=== PATIENT | female | born 1950 | race Hispanic/Latino ===

== ENCOUNTER → 2018-08-12 | Outpatient (CLI) | payer MEDICARE ==
[~2018-08-12] VITALS: Ht 160 cm; Wt 86.1 kg
[~2018-08-12] MED LIST: AMLO5TAB9 PO; HYDR25TA PO; MIRT15TA6 PO; NAPR-1023 PO; OXYB10TA PO; PRAV40TA3 PO; SERT100T12 PO; SODIUM CHLORIDE 0.9% 500ML 500 ML IV SCH
[2018-08-12 08:55] VITALS: BP 186/68
[2018-08-12 09:02] LABS: BASOPHILS % (AUTO) 1.2 % (0.0-5.0); EOSINOPHILS % (AUTO) 2.9 % (0.0-8.0); HEMATOCRIT 39.6 % (36-48); LYMPHOCYTES % (AUTO) 32.8 % (21.0-51.0); MEAN CORPUSCULAR HEMOGLOBIN 27.6 pg (27.0-33.0); MONOCYTES % (AUTO) 8.8 % (3.0-13.0); NEUTROPHILS % (AUTO) 54.3 % (40.0-77.0); NUCLEATED RED BLOOD CELLS 0.1 % (0.0-0.19); PLATELET COUNT (AUTO) 187 K/uL (130-400); RED BLOOD CELL COUNT(AUTO) 4.89 MIL/uL (4.00-5.50); RED CELL DISTRIBUTION WIDTH 14.2 % (11.0-15.5); WHITE BLOOD COUNT (AUTO) 8.3 K/uL (4.8-10.8)
[2018-08-12 09:04] LABS: APPEARANCE,URINE Clear (CLEAR); BILIRUBIN,URINE Negative (NEGATIVE); COLOR,URINE Yellow (YELLOW); GLUCOSE, URINE (UA) Negative (NEGATIVE); KETONES,URINE Negative (NEGATIVE); LEUKOCYTE ESTERASE ,URINE Moderate (NEGATIVE); NITRATE,URINE Negative (NEGATIVE); OCCULT BLOOD,URINE Small (NEGATIVE); PH,URINE 5.5 (5.0-8.0); PROTEIN,URINE Negative (NEGATIVE); UROBILINOGEN,URINE 0.2 mg/dL (0.2-1.0)
[2018-08-12 09:13] LABS: CREATININE 0.7 mg/dL (0.5-1.5); POTASSIUM 3.2 mmol/L (3.5-5.1)
[2018-08-12 09:17] LABS: INR 0.95 (0.85-1.15); PARTIAL THROMBOPLASTIN TIME 25.4 SEC (26.3-35.5)
[2018-08-12 09:24] LABS: BACTERIA,URINE Rare /HPF (None Seen); RBC,URINE 0-1 /HPF (0-1); SQUAMOUS EPITHELIAL CELL,UR 0-2 /HPF (0-2)
--- NOTE | 2018-08-13 11:49 | NUR ---
ABNORMAL LABS REPORTED ABNORMAL LABS TO TOÑO RODRIGUEZ. POTASSIUM 3.2, PTT 25.4, URINE. ORDERS TO REDRAW POTASSIUM LEVEL IN MORNING. JAMA WILL BE CALLING IN AN ANTIBIOTIC TO THE PHARMACY FOR URINE. OFFICE WILL NOTIFY PATIENT OF RX.
== END ==
LOC: EDSTATUS 08:00 → DAH 10:00
PROVIDERS: ATTEND Internal Medicine Cardiovascular Disease
DX: Z01.818 Encounter for other preprocedural examination (principal); I25.10 Atherosclerotic heart disease of native coronary artery without angina pectoris; R94.39 Abnormal result of other cardiovascular function study
CPT/HCPCS: 36415; 71045; 80048; 81001; 85025; 85610; 85730; 93005

== ENCOUNTER 2018-09-25 07:13 | Day surgery (SDC) | payer MEDICARE ==
[2018-09-23 10:43] LABS: BILIRUBIN,URINE Negative (NEGATIVE); COLOR,URINE Yellow (YELLOW); GLUCOSE, URINE (UA) Negative (NEGATIVE); KETONES,URINE Negative (NEGATIVE); LEUKOCYTE ESTERASE ,URINE Negative (NEGATIVE); NITRATE,URINE Negative (NEGATIVE); OCCULT BLOOD,URINE Small (NEGATIVE); PH,URINE 5.5 (5.0-8.0); PROTEIN,URINE Negative (NEGATIVE)
[2018-09-23 10:44] LABS: APPEARANCE,URINE CLEAR (CLEAR)
[2018-09-23 10:46] LABS: BASOPHILS % (AUTO) 0.8 % (0.0-5.0); EOSINOPHILS % (AUTO) 2.2 % (0.0-8.0); HEMATOCRIT 37.7 % (36-48); MEAN CORPUSCULAR HEMOGLOBIN 27.4 pg (27.0-33.0); MEAN CORPUSCULAR HGB CONC 33.9 g/dL (32.0-36.0); MEAN CORPUSCULAR VOLUME 80.9 fL (79-99); MONOCYTES % (AUTO) 8.4 % (3.0-13.0); NEUTROPHILS % (AUTO) 50.6 % (40.0-77.0); NUCLEATED RED BLOOD CELLS 0.1 % (0.0-0.19); PLATELET COUNT (AUTO) 199 K/uL (130-400); RED BLOOD CELL COUNT(AUTO) 4.65 MIL/uL (4.00-5.50); RED CELL DISTRIBUTION WIDTH 14.5 % (11.0-15.5); WHITE BLOOD COUNT (AUTO) 6.1 K/uL (4.8-10.8)
[2018-09-23 10:54] VITALS: BP 191/87
[2018-09-23 10:59] LABS: INR 0.92 (0.85-1.15); PARTIAL THROMBOPLASTIN TIME 25.6 SEC (26.3-35.5); PROTHROMBIN TIME 9.7 SEC (9.6-11.6)
[2018-09-23 11:03] LABS: CREATININE 0.6 mg/dL (0.5-1.5)
--- NOTE | 2018-09-23 11:06 | NUR ---
PAGED JAMA LUNDBERG OF DR. PADILLA TO NOTIFY OF K 3, PENDING CALL BACK.
[2018-09-23 11:14] LABS: BACTERIA,URINE Rare /HPF (None Seen); RBC,URINE 0-1 /HPF (0-1); WBC,URINE None Seen /HPF (0-1)
--- NOTE | 2018-09-23 11:40 | NUR ---
PER JAMA LUNDBERG OF DR. PADILLA ORDERS TO REDRAW K IN AM OF PROCEDURE AND JAMA LUNDBERG WILL NASIR MEDICATION TO PHARMACY OF CHOICE OF PATIENT. PATIENT INFORMED AND VERBALIZED UNDERSTANDING AND AGREED TO GO GET MEDICATION.
[2018-09-25] VITALS (23 sets, daily range): BP systolic 96–163; BP diastolic 38–73
[~2018-09-25] VITALS: Ht 160 cm; Wt 85.9 kg
[~2018-09-25 07:13] MED LIST changes: +CARV6.25 PO; -SODIUM CHLORIDE 0.9% 500ML 500 ML IV SCH
[2018-09-25] MEDS ORDERED: SODIUM CHLORIDE 0.9% 1000ML 1,000 ML IV SCH (08:00)
--- NOTE | 2018-09-25 08:19 | NUR ---
LABS INFORMED TOÑO MÁRQUEZ OF ABNORMAL POTASSIUM AND PTS HEART RATE OF 37, ASYMPTOMATIC, PT STATES SHE HAS HAD COUGH FOR 2 DAYS, AFEBRILE. ORDERS RECEIVED TO INFORM DR. PADILLA OF COUGH AND HR.
--- NOTE | 2018-09-25 08:25 | NUR ---
DR. PADILLA NOTIFIED OF PT'S COUGH X 2 DAYS AND OF PT'S AVERAGE HR OF 40 WITH LOW OF 37[address] PADILLA WILL PROCEED WITH PROCEDURE. NO FURTHER ORDERS GIVEN.
[2018-09-25] MEDS ORDERED: HEPARIN SODIUM 1000UNIT/ML 10ML VIAL ONE (10:05)
[2018-09-25] MEDS ORDERED: IOHEXOL-350 50ML VIAL IV ONE (10:06)
[2018-09-25] MEDS ORDERED: LIDOCAINE HCL 2% 20ML ONE (10:06)
[2018-09-25] MEDS ORDERED: IOHEXOL 350 MG/ML 100ML INFUS..BTL IV ONE (10:06)
[2018-09-25] MEDS ORDERED: ATROPINE SULFATE 0.1 MG/ML 10 ML SYG IVP ONE ×2 (10:29→11:42)
[2018-09-25] MEDS ORDERED: HYDRALAZINE HCL 20 MG/ML VIAL ONE (10:48)
[2018-09-25] MEDS ORDERED: SODIUM CHLORIDE 0.9% 10 ML VIAL IVP SCH (11:00)
[2018-09-25] MEDS ORDERED: AEC81 PO (17:46)
--- NOTE | 2018-09-25 18:00 | NUR ---
Pt discharged home, tolerating food/fluids well, ambulating well. Denies any pain, nausea, or dizziness. Site to right groin remains soft, dry, and intact, without evidence of any bleeding. Routine and emergency care reinforced to pt and pt's daughter. Prescription for medications given to pt's daughter. Pt and daughter instructed to stop current dose of Amlodipine and start taking new prescription of Amlodipine. Pt and daughter also instructed to stop Carvedilol and start taking new prescription of Losartan instead. Pt and daughter report no further questions at this time.
== END 2018-09-25 18:00 | disposition home or self-care (01) ==
LOC: DAH 07:13
PROVIDERS: ATTEND Internal Medicine Cardiovascular Disease
DX: I20.9 Angina pectoris, unspecified (principal); R07.9 Chest pain, unspecified; Z79.01 Long term (current) use of anticoagulants; R00.1 Bradycardia, unspecified
CPT/HCPCS: 36415 ×2; 71045; 80048; 81001; 84132; 85025; 85610; 85730; 93005; 93458; A4606; C1894; J0360; J1644 ×2; J3490; Q9965; Q9967 ×2; J0461

== ENCOUNTER 2020-05-24 07:56 | Day surgery (SDC) | payer OTHER, MEDICARE ==
[~2020-05-24] VITALS: Ht 160 cm; Wt 81.6 kg
[~2020-05-24 07:56] MED LIST changes: +AEC81 PO; +ALEN70TA69 PO; +AMLO-257 PO; -AMLO5TAB9 PO; +BENA40TA9 PO; -CARV6.25 PO; +DOCU-116 PO; +MIRA50TA PO; +MIRT15TA PO; -NAPR-1023 PO; -OXYB10TA PO; +SERT100T PO; -SERT100T12 PO; +SODIUM CHLORIDE 0.9% 1000ML 1,000 ML IV ONE; +VITAD50000 PO
[2020-05-24 08:48] VITALS: BP 189/74
[2020-05-24] MEDS ORDERED: PROPOFOL 10 MG/ML 20ML VIAL IV ONE (09:46)
[2020-05-24] MEDS ORDERED: MIDAZOLAM HCL 1 MG/ML 2ML VIAL ONE (09:47)
[2020-05-24 10:19] VITALS: BP 177/63
[2020-05-24 10:23] VITALS: BP 172/68
[2020-05-24 10:28] VITALS: BP 172/73
[2020-05-24 10:33] VITALS: BP 165/78
== END 2020-05-24 11:16 | disposition home or self-care (01) ==
LOC: DAH 07:56 → ENDO 07:56
PROVIDERS: ATTEND Internal Medicine Gastroenterology
DX: K92.1 Melena (principal); Z20.828 Contact with and (suspected) exposure to other viral communicable diseases; K57.30 Diverticulosis of large intestine without perforation or abscess without bleeding; K29.50 Unspecified chronic gastritis without bleeding; K21.00 Gastro-esophageal reflux disease with esophagitis, without bleeding; D12.3 Benign neoplasm of transverse colon; D12.0 Benign neoplasm of cecum; D12.2 Benign neoplasm of ascending colon; K63.5 Polyp of colon; K64.0 First degree hemorrhoids; K31.89 Other diseases of stomach and duodenum; I25.10 Atherosclerotic heart disease of native coronary artery without angina pectoris; I10 Essential (primary) hypertension; M19.90 Unspecified osteoarthritis, unspecified site; E78.00 Pure hypercholesterolemia, unspecified; G43.909 Migraine, unspecified, not intractable, without status migrainosus; I69.354 Hemiplegia and hemiparesis following cerebral infarction affecting left non-dominant side; Z90.710 Acquired absence of both cervix and uterus; Z95.5 Presence of coronary angioplasty implant and graft; Z86.010 Personal history of colon polyps; Z79.899 Other long term (current) drug therapy; Z79.82 Long term (current) use of aspirin; Z98.49 Cataract extraction status, unspecified eye; Z98.890 Other specified postprocedural states
CPT/HCPCS: 36415; 43239; 45380; 45385; 93005; A4215; A4221; A4222; A4606; A4620; A4657 ×2; A4663; C9803; J2250; J2704; J7030; U0003

== ENCOUNTER → 2021-08-23 | Outpatient (CLI) | payer OTHER, MEDICARE ==
[~2021-08-23] MED LIST changes: -ALEN70TA69 PO; +ALEN70TA80 PO; -BENA40TA9 PO; +BENA40TA92 PO; +MIRT-120 PO; -MIRT15TA PO; -MIRT15TA6 PO; -SODIUM CHLORIDE 0.9% 1000ML 1,000 ML IV ONE
== END | disposition home or self-care (01) ==
LOC: SHCH 08:45
PROVIDERS: ATTEND Internal Medicine Cardiovascular Disease
DX: E27.8 Other specified disorders of adrenal gland (principal); E78.5 Hyperlipidemia, unspecified
CPT/HCPCS: 93975

== ENCOUNTER → 2022-01-30 | Outpatient (CLI) | payer OTHER, MEDICARE ==
[2022-01-30 11:36] LABS: CREATININE 0.7 mg/dL (0.5-1.5)
== END | disposition home or self-care (01) ==
LOC: LAB 10:00
PROVIDERS: ATTEND Internal Medicine Cardiovascular Disease
DX: R19.01 Right upper quadrant abdominal swelling, mass and lump (principal)
CPT/HCPCS: 36415; 82565; 84520

== ENCOUNTER → 2022-02-01 | Outpatient (CLI) | payer OTHER, MEDICARE ==
[~2022-02-01] MED LIST changes: +IOHEXOL-350 50ML VIAL IV ONE
== END | disposition home or self-care (01) ==
LOC: RAH 10:37
PROVIDERS: ATTEND Internal Medicine Cardiovascular Disease
DX: K57.30 Diverticulosis of large intestine without perforation or abscess without bleeding (principal); R19.01 Right upper quadrant abdominal swelling, mass and lump; E27.9 Disorder of adrenal gland, unspecified
CPT/HCPCS: 74160; Q9967

== ENCOUNTER → 2022-12-04 | Outpatient (CLI) | payer OTHER, MEDICARE ==
[~2022-12-04] MED LIST changes: -IOHEXOL-350 50ML VIAL IV ONE
== END | disposition home or self-care (01) ==
LOC: SHCH 08:51
PROVIDERS: ATTEND Internal Medicine Cardiovascular Disease
DX: I70.203 Unspecified atherosclerosis of native arteries of extremities, bilateral legs (principal); I87.2 Venous insufficiency (chronic) (peripheral)
CPT/HCPCS: 93925; 93970